=== PATIENT | female | born 1980 | race Caucasian/White ===

== ENCOUNTER → 2017-06-10 | Outpatient (CLI) | payer BC | END | disposition home or self-care (01) | LOC: LAB 12:22 | DX: N39.0 Urinary tract infection, site not specified (principal) | CPT/HCPCS: 87086 ==

== ENCOUNTER → 2017-09-11 | Outpatient (CLI) | payer BC ==
[2017-09-11 11:12] LABS: ADD MAN DIFF? NO
[2017-09-11 11:18] LABS: WHITE BLOOD COUNT 8.4 10^3/ul (4.8-10.8)
[2017-09-11 11:19] LABS: BASOPHILS % 0.4 % (0.0-2.0); EOSINOPHILS # 0.2 10^3/ul (0.0-0.5); EOSINOPHILS % 2.1 % (0.0-7.0); HEMATOCRIT 32.4 % (37.0-47.0); HEMOGLOBIN 10.9 g/dl (12.0-16.0); LYMPHOCYTES # 1.5 10^3/ul (0.8-2.9); LYMPHOCYTES % 17.8 % (15.0-51.0); MEAN CORPUSCULAR HEMOGLOBIN 31.6 pg (29.0-33.0); MEAN CORPUSCULAR HGB CONC 33.6 g/dl (32.0-37.0); MEAN CORPUSCULAR VOLUME 93.9 fl (82.0-101.0); MEAN PLATELET VOLUME 12.3 fl (7.4-10.4); MONOCYTE # 0.5 10^3/ul (0.3-0.9); MONOCYTES % 5.7 % (0.0-11.0); NEUTROPHIL # 6.2 10^3/ul (1.6-7.5); NEUTROPHILS % 73.6 % (39.0-77.0); PLATELET COUNT 181 10^3/UL (140-415); RED BLOOD COUNT 3.45 10^6/ul (4.20-5.40); RED CELL DISTRIBUTION WIDTH 12.6 % (11.5-14.5)
== END | disposition home or self-care (01) ==
LOC: LAB 09:48
DX: O24.419 Gestational diabetes mellitus in pregnancy, unspecified control (principal); Z3A.00 Weeks of gestation of pregnancy not specified
CPT/HCPCS: 82950; 85025

== ENCOUNTER 2017-11-04 07:54 | Inpatient (IN) | payer BC ==
[2017-11-04] MEDS ORDERED: LACTATED RINGER'S 1,000 ML IV (08:57)
[2017-11-04] MEDS ORDERED: METHYLERGONOVINE 0.2 MG INJ IM (09:00)
[2017-11-04] MEDS ORDERED: IBUPROFEN 600 MG TAB PO (09:00)
[2017-11-04] MEDS ORDERED: BUTORPHANOL 2 MG INJ IV (09:00)
[2017-11-04] MEDS ORDERED: CARBOPROST 250 MCG INJ IM (09:00)
[2017-11-04] MEDS ORDERED: MISOPROSTOL 200 MCG TAB PR (09:00)
[2017-11-04] MEDS ORDERED: LIDOCAINE 1% (MPF) 30 ML INJ INJ (09:00)
[2017-11-04] MEDS: MINERAL OIL LIGHT 10 ML VIAL TOP (09:00)
[2017-11-04] MEDS ORDERED: BUTORPHANOL 1 MG INJ IV (09:00)
[2017-11-04] MEDS ORDERED: OXYTOCIN 30 UNITS/LR 500 ML IV ×2 (09:00)
[2017-11-04] MEDS: LACTATED RINGER'S 1,000 ML IV ×5 (10:20→22:23)
[2017-11-04 10:49] LABS: ADD MAN DIFF? NO
[2017-11-04 10:55] LABS: BASOPHILS % 0.2 % (0.0-2.0); EOSINOPHILS % 0.3 % (0.0-7.0); HEMATOCRIT 37.2 % (37.0-47.0); HEMOGLOBIN 12.5 g/dl (12.0-16.0); LYMPHOCYTES # 1.4 10^3/ul (0.8-2.9); LYMPHOCYTES % 10.6 % (15.0-51.0); MEAN CORPUSCULAR HEMOGLOBIN 32.4 pg (29.0-33.0); MEAN CORPUSCULAR HGB CONC 33.6 g/dl (32.0-37.0); MEAN CORPUSCULAR VOLUME 96.4 fl (82.0-101.0); MEAN PLATELET VOLUME 12.5 fl (7.4-10.4); MONOCYTE # 0.7 10^3/ul (0.3-0.9); MONOCYTES % 5.2 % (0.0-11.0); NEUTROPHIL # 11.1 10^3/ul (1.6-7.5); NEUTROPHILS % 83.3 % (39.0-77.0); PLATELET COUNT 218 10^3/UL (140-415); RED BLOOD COUNT 3.86 10^6/ul (4.20-5.40); RED CELL DISTRIBUTION WIDTH 13.5 % (11.5-14.5)
[2017-11-04 10:55] LABS: WHITE BLOOD COUNT 13.4 10^3/ul (4.8-10.8)
[2017-11-04 11:14] LABS: INR 0.92; PROTIME 12.4 Sec (11.9-14.9)
[2017-11-04 11:15] LABS: PARTIAL THROMBOPLASTIN TIME 25.2 Sec (25.0-35.0)
[2017-11-04 16:46] LABS: RAPID PLASMA REAGIN NONREACTIVE (NR)
[2017-11-04] MEDS ORDERED: FENTAnyl 2MCG/ML-ROPIV 0.2% 100 ML (17:15)
[2017-11-04] MEDS ORDERED: NALOXONE (0.4 MG/ML) INJ IV (17:30)
[2017-11-04] MEDS: FENTAnyl 2MCG/ML-ROPIV 0.2% 100 ML BAG EPI ×2 (18:20→20:21)
[2017-11-04] MEDS: ONDANSETRON 4 MG INJ IV (20:06)
[2017-11-04] MEDS: OXYTOCIN 30 UNITS/LR 500 ML IV (20:22)
[2017-11-04] MEDS ORDERED: AMPICILLIN 2 GM/NS (PMX) 100 ML (20:34)
[2017-11-04] MEDS: AMPICILLIN 2 GM/NS (PMX) 100 ML IVPB (20:40)
[2017-11-04] MEDS: METOCLOPRAMIDE 10 MG INJ IV (21:52)
[2017-11-05] MEDS: AMPICILLIN 1 GM/NS (PMX) 50 ML IVPB ×2 (00:20→03:54)
[2017-11-05] MEDS: FENTAnyl 2MCG/ML-ROPIV 0.2% 100 ML BAG EPI (04:24)
[2017-11-05] MEDS: ONDANSETRON 4 MG INJ IV (04:25)
[2017-11-05] MEDS: OXYTOCIN 30 UNITS/LR 500 ML IV ×2 (07:23→11:26)
[2017-11-05] MEDS: LACTATED RINGER'S 1,000 ML IV* ×2 (07:54→15:54)
[2017-11-05] MEDS ORDERED: OXYTOCIN 30 UNITS/LR 500 ML IV (08:00)
[2017-11-05] MEDS ORDERED: CARBOPROST 250 MCG INJ IM (08:00)
[2017-11-05] MEDS ORDERED: HYDROCODONE/APAP (5/325) TAB PO (08:00)
[2017-11-05] MEDS ORDERED: METHYLERGONOVINE 0.2 MG INJ IM (08:00)
[2017-11-05] MEDS ORDERED: MISOPROSTOL 200 MCG TAB PR (08:00)
[2017-11-05] MEDS: IBUPROFEN 600 MG TAB PO ×4 (10:15→23:55)
[2017-11-05] MEDS: LANOLIN 7 GM TUBE TOP (11:25)
[2017-11-05] MEDS: BENZOCAINE 20% 56 ML SPRAY TOP (11:27)
[2017-11-05 12:10] LABS: RUBELLA ANTIBODY - IGG 5.53 index
[2017-11-06] MEDS: IBUPROFEN 600 MG TAB PO ×3 (05:48→18:14)
[2017-11-06 07:35] LABS: ADD MAN DIFF? NO
[2017-11-06 07:46] LABS: BASOPHIL # 0.1 10^3/ul (0.0-0.1); BASOPHILS % 0.4 % (0.0-2.0); EOSINOPHILS # 0.3 10^3/ul (0.0-0.5); EOSINOPHILS % 2.2 % (0.0-7.0); HEMATOCRIT 32.6 % (37.0-47.0); HEMOGLOBIN 10.9 g/dl (12.0-16.0); MEAN CORPUSCULAR HEMOGLOBIN 32.5 pg (29.0-33.0); MEAN CORPUSCULAR HGB CONC 33.4 g/dl (32.0-37.0); MEAN CORPUSCULAR VOLUME 97.3 fl (82.0-101.0); MEAN PLATELET VOLUME 12.1 fl (7.4-10.4); MONOCYTE # 0.9 10^3/ul (0.3-0.9); MONOCYTES % 7.3 % (0.0-11.0); NEUTROPHIL # 8.4 10^3/ul (1.6-7.5); NEUTROPHILS % 72.7 % (39.0-77.0); PLATELET COUNT 160 10^3/UL (140-415); RED BLOOD COUNT 3.35 10^6/ul (4.20-5.40); RED CELL DISTRIBUTION WIDTH 13.9 % (11.5-14.5)
[2017-11-06 07:46] LABS: WHITE BLOOD COUNT 11.6 10^3/ul (4.8-10.8)
[2017-11-06 12:01] LABS: RUBELLA ANTIBODY - IGM <20.00 AU/mL
[2017-11-07] MEDS: IBUPROFEN 600 MG TAB PO ×4 (01:02→19:20)
== END 2017-11-07 19:20 | disposition home or self-care (01) | DRG 775 ==
LOC: OBT 07:54 → PP1 11-05 10:10 → L-D 07:54 → OBT 08:51 → L-D 08:46
PROVIDERS: Obstetrics & Gynecology
PROC: 10E0XZZ Delivery of Products of Conception, External Approach (ICD-10-PCS; principal; 2017-11-04)
PROC: 0HQ9XZZ Repair Perineum Skin, External Approach (ICD-10-PCS; 2017-11-04)
PROC: 3E033VJ Introduction of Other Hormone into Peripheral Vein, Percutaneous Approach (ICD-10-PCS; 2017-11-04)
DX: O70.0 First degree perineal laceration during delivery (principal); O69.81X0 Labor and delivery complicated by cord around neck, without compression, not applicable or unspecified; Z3A.38 38 weeks gestation of pregnancy; Z37.0 Single live birth
CPT/HCPCS: 62319; 85025; 85610; 85730; 86592; 86762; 86850; 86900; 86901